=== PATIENT | male | born 1965 | race Caucasian/White ===

== ENCOUNTER 2023-09-16 18:53 | Emergency (ER) | payer BC ==
[2023-09-16 20:16] LABS: BASOPHILS PERCENT AUTO 0.3 % (0.0-1.0); HEMATOCRIT 40.4 % (42.0-52.0); HEMOGLOBIN 14.1 gm/dl (14.0-18.0); IMMATURE GRAN ABSOLUTE AUTO 0.02 K/mm3 (0.00-0.05); IMMATURE GRAN PERCENT AUTO 0.3 % (0.0-0.4); LYMPHOCYTES ABSOLUTE AUTO 0.4 K/mm3 (1.0-4.8); LYMPHOCYTES PERCENT AUTO 5.2 % (24.0-44.0); MEAN CORPUSCULAR HEMOGLOBIN 32.2 pg (28.0-32.0); MEAN CORPUSCULAR HGB CONC 34.9 g/dl (32.0-36.0); MEAN CORPUSCULAR VOLUME 92.2 fl (83.0-99.0); MEAN PLATELET VOLUME 9.1 fl (9.4-12.4); MONOCYTES ABSOLUTE AUTO 0.4 K/mm3 (0.0-0.8); MONOCYTES PERCENT AUTO 5.4 % (0.0-8.0); NEUTROPHILS ABSOLUTE AUTO 6.1 K/mm3 (1.8-7.7); NEUTROPHILS PERCENT AUTO 88.8 % (41.0-71.0); PLATELET COUNT,PLT 214 K/mm3 (150-400); RED BLOOD CELL COUNT 4.38 M/mm3 (4.52-5.90)
[2023-09-16 20:42] LABS: A/G RATIO 1.1 (1-2); ALBUMIN 3.2 g/dl (3.4-5.0); ANION GAP 13.6 (5-15); BILIRUBIN TOTAL 0.6 mg/dL (0.2-1.0); CALCIUM 8.6 mg/dL (8.5-10.1); EST CRCL DRUG DOSING (CG) 78.56 mL/min; MAGNESIUM 1.8 mg/dL (1.8-2.4); POTASSIUM,K 3.6 mEq/L (3.5-5.1); PROTEIN TOTAL,TP 6.1 g/dl (6.4-8.2)
== END 2023-09-16 21:20 | disposition home or self-care (01) ==
LOC: JD.ED 18:53
DX: R50.9 Fever, unspecified (principal); B34.8 Other viral infections of unspecified site; K76.0 Fatty (change of) liver, not elsewhere classified
CPT/HCPCS: 36415; 71046; 71046-26; 80053; 80143; 83605; 83735; 85025; 99282; 99283